=== PATIENT | female | born 1990 | race Two or more races ===

== ENCOUNTER 2019-04-11 13:15 | Observation (INO) | payer OTHER ==
[~2019-04-11] VITALS: Ht 156 cm; Wt 74.4 kg
[2019-04-17 10:04] VITALS: BP 100/70
[2019-04-17] MEDS ORDERED: PNV1TABL54 PO (10:05)
[2019-04-17] MEDS ORDERED: RINGERS SOLUTION,LACTATED 1,000 ML IV ONE (10:15)
[2019-04-17 10:44] LABS: BASOPHILS % (AUTO) 0.5 % (0.0-2.0); EOSINOPHILS % (AUTO) 1.4 % (1.0-6.0); HEMATOCRIT 31.5 % (36-46); HEMOGLOBIN 10.6 g/dL (12.0-16.0); LYMPHOCYTES # (AUTO) 1.7 K/uL (1.0-4.8); LYMPHOCYTES % (AUTO) 23.3 % (22.0-44.0); MEAN CORPUSCULAR HEMOGLOBIN 28.4 pg (26.0-34.0); MEAN CORPUSCULAR HGB CONC 33.7 G/dL (31.0-37.0); MEAN CORPUSCULAR VOLUME 84 fL (80-100); MONOCYTES # (AUTO) 0.6 K/uL (0.1-1.0); MONOCYTES % (AUTO) 8.3 % (2.0-9.0); NEUTROPHILS # (AUTO) 4.9 K/uL (1.8-7.7); NEUTROPHILS % (AUTO) 66.5 % (40.0-70.0); PLATELET COUNT (AUTO) 181 K/uL (150-450); RED BLOOD CELL COUNT(AUTO) 3.74 MIL/uL (4.00-5.20); RED CELL DISTRIBUTION WIDTH 16.3 % (11.5-14.5)
[2019-04-17] MEDS ORDERED: SOD FERRIC GLUC COMPLX/SUCROSE 125 MG in SODIUM CHLORIDE 0.9% 100 ML IV ONE (11:00)
[2019-04-25] MEDS ORDERED: FERR-82 PO (08:26)
== END 2019-04-17 12:25 | disposition home or self-care (01) ==
LOC: 4S 04-17 09:30
PROVIDERS: ADMIT Obstetrics & Gynecology; ATTEND Obstetrics & Gynecology
DX: O99.013 Anemia complicating pregnancy, third trimester (principal); O23.43 Unspecified infection of urinary tract in pregnancy, third trimester; Z3A.38 38 weeks gestation of pregnancy
CPT/HCPCS: 36415; 85025; 96365; G0378; J2916; J7050

== ENCOUNTER 2019-04-25 08:45 | Inpatient (IN) | payer OTHER ==
[~2019-04-25] VITALS: Ht 156 cm; Wt 75.3 kg
[~2019-04-25 08:45] MED LIST: FERR-82 PO; PNV1TABL54 PO
[2019-04-25 09:18] LABS: BASOPHILS % (AUTO) 0.5 % (0.0-2.0); EOSINOPHILS % (AUTO) 1.2 % (1.0-6.0); HEMATOCRIT 34.7 % (36-46); HEMOGLOBIN 11.7 g/dL (12.0-16.0); LYMPHOCYTES # (AUTO) 1.7 K/uL (1.0-4.8); LYMPHOCYTES % (AUTO) 19.2 % (22.0-44.0); MEAN CORPUSCULAR HEMOGLOBIN 28.4 pg (26.0-34.0); MEAN CORPUSCULAR HGB CONC 33.6 G/dL (31.0-37.0); MEAN CORPUSCULAR VOLUME 85 fL (80-100); MONOCYTES # (AUTO) 0.7 K/uL (0.1-1.0); MONOCYTES % (AUTO) 7.7 % (2.0-9.0); NEUTROPHILS # (AUTO) 6.5 K/uL (1.8-7.7); NEUTROPHILS % (AUTO) 71.4 % (40.0-70.0); PLATELET COUNT (AUTO) 182 K/uL (150-450); RED BLOOD CELL COUNT(AUTO) 4.11 MIL/uL (4.00-5.20); RED CELL DISTRIBUTION WIDTH 18.2 % (11.5-14.5)
[2019-04-25] MEDS ORDERED: RINGERS SOLUTION,LACTATED 1,000 ML IV PRN (10:07)
[2019-04-25] MEDS ORDERED: OXYTOCIN 30 UNITS/LACT RINGERS 500 ML IV ONE (10:07)
[2019-04-25] MEDS ORDERED: CITRIC ACID/SODIUM CITRATE 30 ML SOLUTION UDCUP PO PRN (10:15)
[2019-04-25] MEDS ORDERED: METOCLOPRAMIDE HCL 5 MG/ML 2 ML VIAL IVP PRN (10:15)
[2019-04-25] MEDS ORDERED: DINOPROSTONE 10 MG VAGINAL SUPPOSITORY VG ONE (10:15)
[2019-04-25] MEDS ORDERED: RINGERS SOLUTION,LACTATED 1,000 ML IV ONE (10:17)
[2019-04-25] MEDS: RINGERS SOLUTION,LACTATED 1,000 ML IV SCH ×3 (10:47→22:02)
[2019-04-25] MEDS ORDERED: OXYGEN THERAPY IH SCH (20:00)
[2019-04-25] MEDS ORDERED: -PHARMACY NOTE- MISC ONE (22:15)
[2019-04-26] MEDS ORDERED: MISOPROSTOL 50 MCG TABLET PO SCH (00:30)
[2019-04-26] MEDS: FentaNYL CITRATE-PF 100 MCG/2 ML VIAL IVP PRN ×6 (04:19→07:53)
[2019-04-26] MEDS ORDERED: OXYTOCIN 30 UNITS/LACT RINGERS 500 ML IV PRN (04:41)
[2019-04-26] MEDS: RINGERS SOLUTION,LACTATED 1,000 ML IV SCH (05:53)
[2019-04-26] MEDS ORDERED: ROPIVACAINE HCL/PF 0.2% 100 ML ED ONE (09:14)
[2019-04-26] MEDS ORDERED: AMPICILLIN SODIUM 2 GM/NS 100 ML IV ONE (09:15)
[2019-04-26] MEDS ORDERED: FentaNYL CITRATE-PF 100 MCG/2 ML VIAL IVP PRN (09:45)
[2019-04-26] MEDS ORDERED: MEPERIDINE-PF 25 MG/ML VIAL IVP PRN (09:45)
[2019-04-26] MEDS ORDERED: HYDROmorphone 2 MG/ML SYRINGE IVP PRN (09:45)
[2019-04-26] MEDS ORDERED: AMPICILLIN SODIUM 1 GM/NS 50 ML IV SCH (13:15)
[2019-04-26] MEDS ORDERED: IBUPROFEN 800 MG TABLET PO SCH (13:22)
[2019-04-26] MEDS ORDERED: GLYCERIN/WITCH HAZEL LEAF 40 PADS JAR TP PRN ×2 (13:30→13:45)
[2019-04-26] MEDS ORDERED: LANOLIN 7 GM OINTMENT TP PRN ×2 (13:30→13:45)
[2019-04-26] MEDS ORDERED: ACETAMINOPHEN/CODEINE 300-30 MG TABLET PO PRN ×4 (13:30→13:45)
[2019-04-26] MEDS ORDERED: BENZOCAINE 20%/MENTHOL 56 GM SPRAY CANISTER TP PRN ×2 (13:30→13:45)
[2019-04-26] MEDS ORDERED: CeFAZolin 2 GM/DEXTROSE 50 ML IV ONE (13:45)
[2019-04-26] MEDS: IBUPROFEN 800 MG TABLET PO SCH ×2 (16:59→23:20)
[2019-04-26] MEDS ORDERED: OXYGEN THERAPY IH SCH (20:00)
[2019-04-26] MEDS ORDERED: MAGNESIUM HYDROXIDE SUSPENSION 30 ML UDCUP PO SCH ×2 (21:00)
[2019-04-27 04:41] VITALS: BP 110/61
[2019-04-27] MEDS: IBUPROFEN 800 MG TABLET PO SCH ×2 (05:28→11:19)
[2019-04-27] MEDS ORDERED: IBUP-2071 PO (13:18)
== END 2019-04-27 16:00 | disposition home or self-care (01) | DRG 807 ==
LOC: 4S 08:45 → OBSVTOIN 08:45
PROVIDERS: ADMIT Obstetrics & Gynecology; ATTEND Obstetrics & Gynecology
PROC: 0W8NXZZ Division of Female Perineum, External Approach (ICD-10-PCS; principal; 2019-04-26)
PROC: 10E0XZZ Delivery of Products of Conception, External Approach (ICD-10-PCS; 2019-04-26)
PROC: 0UQMXZZ Repair Vulva, External Approach (ICD-10-PCS; 2019-04-26)
PROC: 3E0R3BZ Introduction of Anesthetic Agent into Spinal Canal, Percutaneous Approach (ICD-10-PCS; 2019-04-26)
PROC: 00HU33Z Insertion of Infusion Device into Spinal Canal, Percutaneous Approach (ICD-10-PCS; 2019-04-26)
DX: O76 Abnormality in fetal heart rate and rhythm complicating labor and delivery (principal); Z37.0 Single live birth; O99.824 Streptococcus B carrier state complicating childbirth; O71.82 Other specified trauma to perineum and vulva; Z3A.39 39 weeks gestation of pregnancy
CPT/HCPCS: 86850; 86900; 86901; J0690; J2590; J2795; J3010; J7120